=== PATIENT | female | born 1955 | race American Indian/Alaskan Native ===

== ENCOUNTER 2017-06-01 12:58 | Emergency (ER) | payer MEDICAID ==
[2017-06-01 13:28] VITALS: BP 144/92
[2017-06-01] MEDS ORDERED: BOOSTRIX IM ONE (16:38)
--- NOTE | 2017-06-01 16:47 | Emergency Department Report ---
ED Upper Extremity Inj HPI - General Chief Complaint: Extremity Injury, Upper Stated Complaint: LEFT INDEX FINGER LACERATION Source: patient Mode of arrival: Ambulatory Limitations: No Limitations - History of Present Illness Initial Comments: 61 y/o F with a PMHX of diabetes and HTN presents s/p laceration to the left index finger. Pt states that she was cutting a piece of string a few hours ago and she accidentally nicked the padded part of her left finger with the scissors. She states that she was bleeding a lot at the site prior to arrival. She denies being on any blood thinners. Pt states that she has not had any pain at the site. She denies any numbness, tingling, or pain at the site. She has not tried anything for the symptoms at this time. Pt does not recall when her last tetanus shot was. She states that her ROM of this finger is full. Allergy to PCN. Complaint: Injury to:: left, finger -: Sudden (few hours ago) Other Extremity Injury: Fingers: Left Other Injuries: none Handedness: right Place: home Severity scale (0 -10): 0 Improves With: none Worsens With: none Context: laceration Associated Symptoms: denies: weakness, numbness, suspects foreign body, nausea/ vomiting, heard/felt popping sensat - Related Data Previous Rx's Medication Instructions Recorded Last Taken Type Mupirocin [Bactroban 2% CREAM] 1 applicatio TP TID #1 tube 06/01/17 Unknown Rx Allergies Allergy/AdvReac Type Severity Reaction Status Date / Time Penicillins AdvReac Unknown Unverified 10/23/15 17:01 ED Review of Systems ROS: Stated complaint: LEFT INDEX FINGER LACERATION Other details as noted in HPI Constitutional: denies: chills, fever Eyes: denies: eye pain, eye discharge, vision change ENT: denies: ear pain, throat pain Respiratory: denies: cough, shortness of breath, wheezing Cardiovascular: denies: chest pain, palpitations Gastrointestinal: denies: abdominal pain, nausea, diarrhea Genitourinary: denies: urgency, dysuria, discharge Musculoskeletal: other (bleeding and open laceration) Skin: other (laceration with mild bleeding) Neurological: denies: headache, weakness, paresthesias Psychiatric: denies: anxiety, depression Hematological/Lymphatic: denies: easy bleeding, easy bruising ED Past Medical Hx - Past Medical History Previous Medical History?: Yes Hx Hypertension: Yes (Borderline hypertension) Hx Diabetes: Yes - Surgical History Past Surgical History?: Yes Additional Surgical History: left shoulder and left knee surgery - Social History Smoking Status: Current Every Day Smoker Substance Use Type: None - Medications Home Medications: Home Medications Medication Instructions Recorded Confirmed Last Taken Type Mupirocin [Bactroban 2% CREAM] 1 applicatio TP TID #1 tube 06/01/17 Unknown Rx ED Physical Exam - General Limitations: No Limitations General appearance: alert, in no apparent distress - Head Head exam: Present: atraumatic, normocephalic - Eye Eye exam: Present: normal appearance - ENT ENT exam: Present: mucous membranes moist - Neck Neck exam: Present: normal inspection - Respiratory Respiratory exam: Present: normal lung sounds bilaterally. Absent: respiratory distress - Cardiovascular Cardiovascular Exam: Present: regular rate, normal rhythm. Absent: systolic murmur, diastolic murmur, rubs, gallop - Extremities Exam Extremities exam: Present: other (small superficial laceration noted at the left index finger, distal aspect) - Expanded Upper Extremity Exam Left Forearm Wrist exam: Present: normal inspection, full ROM Hand Wrist exam: Present: full ROM, tenderness (mild TTP at the site ), laceration (there is a very small superficial 0.3 cm laceration at the shape of a V noted at the fat pad of the left index finger), other (pulses were full and sensation was intact). Absent: swelling, deformity, erythema Vascular: Present: normal capillary refill - Neurological Exam Neurological exam: Present: alert, oriented X3 - Psychiatric Psychiatric exam: Present: normal affect, normal mood - Skin Skin exam: Present: other (superficial laceration with no evidence of foreign body noted, ROM was full of the joint, mild bleeding that was stopped with pressure and time) ED Course Vital Signs 06/01/17 13:22 Temperature 98.6 F Pulse Rate 87 Respiratory 18 Rate Blood Pressure 144/92 O2 Sat by Pulse 100 Oximetry - Laceration /Wound Repair Left Upper Anterior Lateral Distal Palm Finger Wound Location: upper extremity Wound's Depth, Shape: superficial Wound Explored: clean Irrigated w/ Saline (ccs): 1 Betadine Prep?: Yes Wound Debrided: minimal Wound Repaired With: Dermabond Sterile Dressing Applied?: No (bandaid applied to the site) ED Medical Decision Making - Medical Decision Making The area was cleaned with betadine and normal saline the area was then visualized with no evidence of foreign bodies or tendon injury. Dermabound was used to approximate the edges and then wrapped with a bandaid. Pt denied any imaging for foreign body at this time, all risks and benefits were explained to the patient. She signed AMA form stating understanding. Pt was updated with her tetanus shot here in the ED. She was also discharged home with mupriocin antibiotic cream. She was told to follow-up with PCP within 1 week to ensure resolution of her symptoms. Critical care attestation.: If time is entered above; I have spent that time in minutes in the direct care of this critically ill patient, excluding procedure time. ED Disposition Clinical Impression: Laceration Disposition: DC-01 TO HOME OR SELFCARE Is pt being admited?: No Does the pt Need Aspirin: No Condition: Stable Instructions: Mupirocin (On the skin), Laceration (ED) Additional Instructions: Please apply the antibiotic cream as directed. Please monitor for signs of infection such as fever, chills, oozing, pus, or drainage. Please follow-up with your PCP within one week. Please return to the ER immediately with any continued or worsening symptoms. Prescriptions: Mupirocin [Bactroban 2% CREAM] 1 applicatio TP TID #1 tube Referrals: [facility] [Outside] - 3-5 Days [facility] [Outside] - 3-5 Days ADENIKE FREEMAN MD [Primary Care Provider] - 3-5 Days DIMAS CASON MD [Staff Physician] - 3-5 Days Forms: Work/School Release Form(ED)
[2017-06-01] MEDS ORDERED: NACL 0.9% 500 ML IR ONE (16:54)
== END 2017-06-01 17:19 | disposition home or self-care (01) ==
LOC: ED 12:58
DX: S61.211A Laceration without foreign body of left index finger without damage to nail, initial encounter (principal); W45.8XXA Other foreign body or object entering through skin, initial encounter; Y93.9 Activity, unspecified; Y92.9 Unspecified place or not applicable; Y99.9 Unspecified external cause status; E11.9 Type 2 diabetes mellitus without complications; F17.200 Nicotine dependence, unspecified, uncomplicated
CPT/HCPCS: 90471; 90715; 99282